=== PATIENT | female | born 1935 | race Caucasian/White ===

== ENCOUNTER 2016-11-18 19:07 | Inpatient (IN) | payer OTHER ==
[~2016-11-18] VITALS: Ht 165.1 cm; Wt 49.9 kg
--- NOTE | ~2016-11-18 | DS ---
[place], [place] DISCHARGE SUMMARY [id number] UNIT #: [id number] ROOM: 315 DOCTOR: JASPER ABBOTT BIRTHDATE: [birth year] DOS: 11/28/2016 HISTORY OF PRESENT ILLNESS: This is an 81-year-old female known to us from [facility] in [place], [place]. She has also had multiple psychiatric admissions to this unit. The patient was admitted due to altered mental status with increasing paranoia and psychosis, extremely fearful and tearful, increasingly more despondent and depressed and has not been attending to her ADLs or leaving her room. Her sleep and appetite have worsened and she has lost a significant amount of weight. She is somatically preoccupied, reporting extreme abdominal pain and multiple issues with headaches and fullness in her sinus area. She was admitted to rule out organic factors and to stabilize on her medications. PAST MEDICAL HISTORY: Remarkable for Parkinson disease, diabetes, GERD, glaucoma, hyperlipidemia, hypertension and sleep apnea. DIAGNOSIS: Major depression, recurrent with psychotic features. We maintained her on her psychotropic regimen and we then worked with pharmacy regarding obtaining Nuplazid given the fact that she continues to have issues with psychosis with the standard atypical antipsychotics and we did not want to exacerbate her Parkinson disease with them. The Nuplazid helped target specifically the hallucinations and delusions that you get with Parkinson disease. She was eventually able to get Nuplazid started and responded well to it and we started titrate her off of her other antipsychotropics. MENTAL STATUS: The patient is alert and oriented to person, place, approximate time. Mood euthymic. Affect appropriate. There is the occasional fixation and anxious overtones, but she redirects really well now. No overt signs of auditory or visual hallucinations, delusions, paranoia, lane, or hypomania. She still can be very somatically preoccupied, especially with her abdominal issues, which we believe is still related somewhat to the aggression of her Parkinson disease. PLAN: The patient is being discharged back to [facility] in [place], [place] in stable condition. She will be on Nuplazid 17 mg tabs 2 tabs daily. This will help with some of the psychosis associated with her Parkinson disease. She is currently still on Seroquel 12.5 mg b.i.d., I decreased this yesterday. Dr. Ramirez is following up with her next week at the facility and we will continue to wean the Seroquel to off. Since the Nuplazid which is started several days ago, we need time for it to titrate up in her system and pull away on the Seroquel. We anticipate that transferred back to the facility may cause a little bit of restlessness, so we want to keep the Seroquel on board for now, get her acclimated back to the facility and then wean this to off. She is also on Atarax 50 mg t.i.d. for anxiety, Exelon patch 13.3 mg q. day for dementia, Namenda XR 28 mg q. day for dementia and Remeron 15 mg at bedtime. This dose of 15 mg will help her sleep at night and stimulate her appetite and also help with depression. The patient is being discharged in stable condition and again Dr. Ramirez and myself will follow up with her at the facility. [place], [place] DISCHARGE SUMMARY NAME: TEZ CACERES UNIT #: [id number] ROOM: [facility] DOCTOR: JASPER ABBTOT BIRTHDATE: [birth year] ZACH ABBOTT CNP CM:DISCHDALE [id number] JASPER ABBOTT 11/28/16 0914 interface
--- NOTE | ~2016-11-18 | PR ---
[place], [place] PROGRESS NOTE NAME: TEZ CACERES UNIT #: [id number] ROOM: 315 DOCTOR: JASPER ABBOTT BIRTHDATE: [birth year] DOS: 11/27/2016 CHIEF COMPLAINT: "Good morning." SUMMARY OF VISIT: The patient assessed in the dining area. She still has her somatic symptoms, but it seems to be improving. It should be noted from nursing that she did receive her first dose of the Nuplazid yesterday. MENTAL STATUS: Alert and oriented to person, place, I do not think time. Mood, it is trending towards euthymic. She is less fixated and anxious. No overt signs of auditory or visual hallucinations, delusions, paranoia, still has the somatization, but is redirectable. PLAN: I am going to leave the psychotropics where they are right now since she just got her dose of Nuplazid. I will see how she is tomorrow and then per Dr. Ramirez's note of yesterday, we will look at discontinuing the Seroquel if we can. I want to give her a little bit more time with the Nuplazid building up in her system and then go from there. ZACH ABBOTT CNP CM:PNSTACY [id number] JASPER ABBOTT 11/27/16 1114 interface
--- NOTE | ~2016-11-18 | PR ---
[place], [place] PROGRESS NOTE [id number] UNIT #: [id number] ROOM: 315 DOCTOR: JASPER ABBOTT BIRTHDATE: [birth year] DOS: 11/21/2016 CHIEF COMPLAINT: "Good morning, I feel very dizzy. I can't feed myself." SUMMARY OF VISIT: The patient was assessed in the dining room where she was trying to eat breakfast. She was starting to cut up her egg, was complaining of some dizzy and nausea, feeling they are not wanting to feed herself, apparently is a behavior that she has had since she is here, but we are encouraging her to feed herself and she is capable of doing so; however, the dizziness may have some foundations. Apparently, she has had several bouts of diarrhea this morning and yesterday. We did check her vital signs, her blood pressure was fine, but she may be a little bit on the dehydrated side, so we will encourage some fluids with regards to that. MENTAL STATUS: She is alert and oriented to person, place, approximate time. Mood still on the depressed side. Affect is flat and blunted. No overt signs of auditory or visual hallucinations, delusions, or paranoia. She did sleep last night. PLAN: We are still trying to get her Nuplazid for her psychosis associated with her Parkinson's disease. I am not going to change any medications right now until we are sure the diarrhea is under control. I do not want to complicate anything. We will monitor her, we will continue with some fluids and see if we can get the Nuplazid ordered for her. ZACH ABBOTT CNP CM:PNTRANS [phone] JASPER ABBOTT 11/21/16 1025 interface
--- NOTE | ~2016-11-18 | PR ---
[place], [place] PROGRESS NOTE [id number] UNIT #: [id number] ROOM: 315 DOCTOR: JASPER ABBOTT BIRTHDATE: [birth year] DOS: 11/20/2016 CHIEF COMPLAINT: "Good morning." SUMMARY OF VISIT: The patient assessed in her room. She engaged readily in conversation, answered my questions appropriately, no voiced complaints. MENTAL STATUS: Alert and oriented to person, place, approximate time. Mood still rather depressed. Affect flat, blunted, and constricted range, stated sleep was a little bit better last night. PLAN: We are still trying to get Nuplazid for her psychosis associated with her Parkinson's disease. We will continue with current medications and engage in individual and rice milieu therapy with the plan to discharge once stable. ZACH ABBOTT CNP CM:PNTRANS [id number] JASPER ABBOTT 11/20/16 1417 interface
--- NOTE | ~2016-11-18 | PR ---
[place], [place] PROGRESS NOTE NAME: TEZ CACERES UNIT #: [id number] ROOM: 315 DOCTOR: ROXANNE AVILES MD BIRTHDATE: [birth year] DOS: 11/22/2016 CHIEF COMPLAINT: "I really don't feel good, my belly as bothering me, there is lots of pressure here." SUMMARY OF THE VISIT: The patient was interviewed as she sat waiting for breakfast. She engaged readily in conversation. She was mainly fixated on her belly pain, stating that she has a lot of abdominal distention and gas and a lot of pain. She is very worried about this because her mother from a bowel obstruction. She remains rather flat and blunted as well and very depressed, stating that she did not sleep well, nor has she been eating well. MENTAL STATUS: She is alert and oriented to person, place, but not time. Mood seems to be depressed. She is very somatically preoccupied. How much of this is reality based versus part of the depression is unclear, but needs to be evaluated further. There is no lane or hypomania. There are no overt auditory or visual hallucinations. Memory has gaps. PLAN: I will add simethicone 20 mg every 6 hours to see if this helps with some of her abdominal distention and gas. I will obtain a flat plate of the abdomen just to make certain that we are not dealing with any type of bowel obstruction or partial bowel obstruction. We will continue to engage her in individual and rice milieu activity with the plan then to return back to [facility] when psychiatrically stable. ROXANNE AVILES MD CM:PNTRANS [phone] ROXANNE AVILES MD 11/22/16 1704 interface
--- NOTE | ~2016-11-18 | PR ---
[place], [place] PROGRESS NOTE NAME: TEZ CACERES UNIT #: [id number] ROOM: 315 DOCTOR: JASPER ABBOTT BIRTHDATE: [birth year] DOS: 11/24/2016 CHIEF COMPLAINT: "Good morning." SUMMARY OF VISIT: The patient was assessed in the dining room. She engaged readily in conversation. She was started on antibiotic yesterday. Pending the sensitivity coming back due to the initial showed greater than 100,000 colonies and I believe she is symptomatic, I think some of this abdomen pain and discomfort may be related to UTI. She is fixated on her abdomen and pain and unfortunately not redirectable. Her imaging done on the , it shows bowel gas patterns normal without obstructions, multiple gas filled loops in the large and small. She is getting simethicone every 6 hours to help with this. Her main complaint is still pain and she is upset that we are not addressing her pain. She is constantly asking for pain medications in middle of night and then falling back to sleep. She has Tylenol available, but she states it is ineffective. I think what I am going to do at this time, I will add a low dose Cymbalta to see if it helps with her depression, but also possibly help with her chronic pain that she is complaining of we are waiting for the cultures and sensitivities come back, so we can get on the right antibiotic as well, see if this addition helps and do our best to redirect and inform her what is going on. ZACH ABBOTT CNP CM:PNTRANS [phone] JASPER ABBOTT 11/24/161709 interface
--- NOTE | ~2016-11-18 | PR ---
[place], [place] PROGRESS NOTE NAME: TEZ CACERES UNIT #: [id number] ROOM: 315 DOCTOR: JASPER ABBOTT ZACH BIRTHDATE: [birth year] DOS: 11/23/2016 CHIEF COMPLAINT: "Good morning." SUMMARY OF VISIT: The patient was assessed in the dining room where she was getting ready for breakfast. She was a little bit cold, we put a blanket around her. It should be noted that her lab came back. Her urinalysis was turbid, trace of protein, 2+ blood, positive for nitrites, 3+ leukocytes, 4+ bacteria. The patient has been complaining of belly pain. When I asked her to point to it, she actually pointed lower. I am wondering if she is having bladder spasms on top of this. She is not febrile and the doctor's hospitalist noted that she is not complaining of dysuria, but I am not sure that she would be able to correspond that symptom. She was originally admitted because she just did not feel well, very tearful, acutely change in her mental status even though she has dementia. I am kind of wondering if it was just a UTI brewing in this patient. Dr. Ramirez did order a flat plate yesterday to rule out anything. ____ had a little bit of gas bubbles, but no blockage and again when I assessed her and had her show me where it hurt, she started to rub her belly, but then she started pointing more down to the ____ area, which would be consistent with possible bladder spasms secondary to urinary tract infection. MENTAL STATUS: She is alert and oriented to person, place, I do not think time. Mood, still on the depressed side. She is preoccupied with this abdominal issue. We will follow up with the hospitalist to see if they are just waiting on the cultures and sensitivities come back or if they feel that it may be appropriate to just go ahead and start treat her now. PLAN: I am going to keep her psychotropic medications where they are right now. Let see if possibly starting an antibiotic would help clear up some of the issues that she is having. We will go from there. ZACH ABBOTT CNP CM:PNTRANS [phone] JASPER ABBOTT 11/23/161611 interface
--- NOTE | ~2016-11-18 | WRIGHTHP ---
[place], [place] PATIENT HISTORY AND PHYSICAL EXAM NAME[id number] UNIT #: [id number] ROOM: 315 DOCTOR: ROXANNE AVILES MD BIRTHDATE: [birth year] DOS: 11/19/2016 INITIAL PSYCHIATRIC EVALUATION CHIEF COMPLAINT: "I have all this pain and I just don't feel well." HISTORY OF PRESENT ILLNESS: This is an 81-year-old white female well known to me from her stay at [facility] in [place] as well as multiple psychiatric admissions here. The patient is admitted now due to altered mental status with increasing paranoia and psychosis. She is extremely fearful and tearful. She has been increasingly more despondent and depressed and has not been attending to her ADLs or leaving her room. Her sleep and appetite likewise have worsened and she has not been eating and has lost a significant amount of weight. She is somatically preoccupied, reporting that she has extreme abdominal pain and that she also has multiple issues with headaches and fullness in her sinus area. She is admitted now to rule out organicity and to stabilize on medication with the ultimate plan to return back to [facility] when stable. PAST MEDICAL HISTORY: Remarkable for long history of Parkinson's disease as well as diabetes, GERD, glaucoma, hyperlipidemia, hypertension, and sleep apnea. MENTAL STATUS: The patient is alert and oriented to person, place, and approximate to time. Mood does seem to be rather depressed. Affect is flat, blunted with constricted range. She is extremely somatically preoccupied and offers a plethora of somatic complaints as well as some paranoia. She is fearful and tearful. She does process slowly at times and she does have some issues with short-term memory. PLAN: I have maintained her on her current psychotropic regimen. I have discussed with pharmacy the possibility of obtaining Nuplazid given the fact that she continues to have issues with psychosis with the standard atypical antipsychotics and I do not want to exacerbate her Parkinson's with them. I would like to be able to place her on Nuplazid to see if we can target specifically the hallucinations and delusions of Parkinson's disease. We will engage her in individual and rice milieu activity with the ultimate plan then to return to [facility]. [place], [place] PATIENT HISTORY AND PHYSICAL EXAM NAME: TEZ CACERES UNIT #: [id number] ROOM: 315 DOCTOR: ROXANNE AVILES MD BIRTHDATE: [birth year] ROXANNE AVILES MD CM:HISPHYS:PATIENT HISTORY AND PHYSICAL EXAMINATION [id number] ROXANNE AVILES MD 11/19/16 1035 interface
--- NOTE | ~2016-11-18 | PR ---
[place], [place] PROGRESS NOTE NAME: TEZ CACERES UNIT #: [id number] ROOM: 315 DOCTOR: ROXANNE AVILES MD BIRTHDATE: [birth year] DOS: 11/26/2016 CHIEF COMPLAINT: "I think I feel better." SUMMARY OF THE VISIT: The patient was interviewed in the dining area. She smiled on approach and did state that she did feel a little better with the medication changes that I made yesterday. She reports feeling less anxious and feels less bloating and other somatic symptoms. She actually was able to engage in pleasant conversation and was very positive overall and how she was feeling. This is in lafleur contrast even yesterday when she offered a plethora of somatic complaints and was very negativistic. She did report better sleep as well and denied any medication side effects. MENTAL STATUS: She is alert and oriented with time gaps. Mood does seem to be more euthymic and she is less anxious and fretful. There are no overt auditory or visual hallucinations. No delusions. There is still some somatization but she redirects, short term memory has gaps, otherwise she is intact. PLAN: I will maintain her current psychotropic regimen given the fact that there seems to be some benefit ready, still awaiting word whether or not we can start the new Placid if we do so we may look then to discontinue the Seroquel. We will monitor and support engage in individual and rice milieu activity. ROXANNE AVILES MD CM:PNTRANS [phone] ROXANNE AVILES MD 11/26/16 1450 interface
--- NOTE | ~2016-11-18 | PR ---
[place], [place] PROGRESS NOTE NAME: TEZ CACERES UNIT #: [id number] ROOM: 315 DOCTOR: ROXANNE AVILES MD BIRTHDATE: [birth year] DOS: 11/25/2016 CHIEF COMPLAINT: "I am still dizzy, I am having bowel problems, no one is doing anything for me." SUMMARY OF THE VISIT: The patient was interviewed in the dining area. Upon approach, she appeared very fretful and anxious and distraught. She offered a plethora of somatic complaints and even after I had addressed each of those and began leaving to talk to another patient, she re-engaged me in conversation, reiterating the exact same point that she had already previously stated. She seems very anxious and very in need of support. She also reports that through the day, her anxiety level peaks at times, but she does not know why. MENTAL STATUS: She is alert and oriented with significant gaps. Mood does seem to be depressed with anxious overtones. There is no hypomania or lane. There are no overt auditory or visual hallucinations, although her somatization borders on psychosis. Memory is poor. PLAN: We are still waiting for the Nuplazid. At this point, I cannot justify continuing not treating her psychotic symptoms. So, I will go ahead and add Seroquel 12.5 mg 3 times a day. I will break it up in this fashion to give her some extra antianxiety properties as well. Once we get the Nuplazid, I will go ahead and discontinue the Seroquel if it is ineffective. I will discontinue Cymbalta to prevent polypharmacy at this point. Maintain the Remeron at 15 mg at bedtime. Continue to engage her in individual and rice milieu activity with the plan then to return to [facility] in [place] when psychiatrically stable. ROXANNE AVILES MD CM:PNTRANS [phone] ROXANNE AVILES MD 11/25/16 1021 interface
[~2016-11-18 19:07] MED LIST: ARTIFICIAL TEA1 EACH OU; B121000 MCG/1 IM; BISACODYL10 MG RC; BRIN20TA PO; CARBIDOPA/LEVOD1 TA1 PO; EXELON13.3 MG/21 T; FLUDROCORTISON0.1 MG PO; FLUTICASON0.05 MG/AC NAS; GLYCOLAX17 GM/DOSE PO; HYDROCODON-ACE1 EACH PO; LATANOPROST2.5 ML OU; LINZESS290 MC1 PO; MECLIZINE HCL25 M2 PO; METFORMIN HCL500 MG PO; METOPROLOL TART50 M1 PO; MIDODRINE HCL5 M1 PO; MIRTAZAPINE15 M2 PO; NAMENDA XR7 M1 PO; NAMENDA-28 PO; OMEPRAZOLE D/R20 MG PO; POTASSIUM CHLO20 ME4 PO; QUETIAPINE FUMA25 MG PO; RIVASTIGMINE1 EACH T; SEROQUEL25 MG PO; SEROQUEL50 MG PO; SIMVASTATIN40 MG PO; VITAMIN D22000 UNIT PO
[2016-11-18] MEDS ORDERED: REMERON15 M2 PO (23:18)
[2016-11-19 00:23] VITALS: BP 118/84
[2016-11-19 01:02] VITALS: BP 118/84
[2016-11-19] MEDS ORDERED: VISTARIL50 MG PO (04:08)
[2016-11-19] MEDS ORDERED: ARTIFICIAL TEAR15 M9 OU (04:13)
[2016-11-19] MEDS ORDERED: QUALITY CHOICE10 M3 PO (04:17)
[2016-11-19] MEDS ORDERED: MOTION SICKNESS25 M2 PO (04:18)
[2016-11-19] MEDS ORDERED: ZOFRAN4 MG PO (04:19)
[2016-11-19 07:11] LABS: BASO % 0.6 % (0.0-1.0); EOS # 0.3 10*3/uL (0.0-0.4); EOS % 4.3 % (1.0-4.0); HEMOGLOBIN 10.6 g/dl (12.0-16.0); LYMPH # 1.9 10*3/uL (1.3-4.4); LYMPH % 29.1 % (27.0-41.0); MEAN CELL VOLUME 93.8 fl (81.0-99.0); MEAN CORPUSCULAR HGB 30.1 pg (27.0-31.0); MEAN CORPUSCULAR HGB CONC 32.1 g/dl (33.0-37.0); MEAN PLATELET VOLUME 10.5 fl (9.6-12.3); MONO # 0.5 10*3/uL (0.1-1.0); MONO % 7.1 % (3.0-9.0); NEUT # 3.7 10*3/uL (2.3-7.9); NEUT % 58.6 % (47.0-73.0); PLATELET COUNT AUTOMATED 215 10*3/uL (130-400); RED BLOOD COUNT 3.52 10*6/uL (4.10-5.10); WHITE BLOOD COUNT 6.4 10*3/uL (4.8-10.8)
[2016-11-19 07:43] LABS: ALBUMIN 2.9 gm/dl (3.1-4.5); BILIRUBIN, TOTAL 0.4 mg/dl (0.2-1.0); BUN 21 mg/dl (7-24); CARBON DIOXIDE 30 mmol/L (21-32); CHLORIDE 102 mmol/L (98-107); CHOLESTEROL 113 mg/dL (<200); EST GLOM FILT AFRICAN AMERICAN > 60 ml/min; GLUCOSE 86 mg/dL (65-99); POTASSIUM 4.1 mmol/L (3.5-5.1); SGOT/AST 12 IU/L (3-35); SGPT/ALT 21 U/L (12-78); SODIUM 141 mmol/L (136-145); TOTAL PROTEIN 6.1 gm/dL (6.4-8.2); TRIGLYCERIDES 113 mg/dl (<150); VLDL CHOLESTEROL 23 mg/dL (6-40)
[2016-11-19 07:52] LABS: ALKALINE PHOSPHATASE 70 U/L (45-117); HDL CHOLESTEROL 72 mg/dl (40-60); LDL CHOLESTEROL 18 mg/dL (9-159)
[2016-11-19 07:53] LABS: HEMOGLOBIN A1c 5.7 % (4.8-5.6)
[2016-11-19 08:00] VITALS: BP 156/70
[2016-11-19 08:21] LABS: FOLIC ACID 13.96 ng/mL (>5.38); VITAMIN D, 25-HYDROXY 53.1 ng/mL (30-100)
[2016-11-19 20:16] VITALS: BP 160/82
[2016-11-20 07:53] VITALS: BP 150/62
[2016-11-20 20:10] VITALS: BP 138/58
[2016-11-21 08:00] VITALS: BP 110/77
[2016-11-21 20:15] VITALS: BP 156/62
[2016-11-22 08:16] VITALS: BP 130/90
[2016-11-22 19:53] VITALS: BP 156/70
[2016-11-22 21:24] LABS: BILIRUBIN NEGATIVE (NEGATIVE); BLOOD 2+ (NEGATIVE); CLARITY TURBID (CLEAR); COLOR YELLOW (YELLOW); GLUCOSE NEGATIVE (NEGATIVE); KETONE TRACE (NEGATIVE); LEUKO ESTERASE 3+ (NEGATIVE); NITRITE POSITIVE (NEGATIVE); PROTEIN 1+ (NEGATIVE); UROBILINOGEN 0.2 E.U./dl (0.2-1.0)
[2016-11-22 21:32] LABS: BACTERIA 4+; MUCOUS TRACE; RBC 16-20 rbc/hpf (0-2); URINE REFLEX COMMENT YES (NO); WBC TNTC wbc/hpf (0-5)
[2016-11-23 08:01] VITALS: BP 154/74
[2016-11-23 19:47] VITALS: BP 140/81
[2016-11-24 07:47] VITALS: BP 156/72
[2016-11-24 19:53] VITALS: BP 140/62
[2016-11-25 07:23] VITALS: BP 136/63
[2016-11-25 19:46] VITALS: BP 142/65
[2016-11-26 07:03] VITALS: BP 140/66
[2016-11-26 20:00] VITALS: BP 112/52
[2016-11-27 09:21] VITALS: BP 154/68
[2016-11-27 19:44] VITALS: BP 133/61
[2016-11-28 06:46] LABS: BILIRUBIN NEGATIVE (NEGATIVE); BLOOD TRACE-INTACT (NEGATIVE); CLARITY SL CLOUDY (CLEAR); COLOR YELLOW (YELLOW); GLUCOSE NEGATIVE (NEGATIVE); KETONE NEGATIVE (NEGATIVE); LEUKO ESTERASE TRACE (NEGATIVE); NITRITE NEGATIVE (NEGATIVE); PROTEIN NEGATIVE (NEGATIVE); UROBILINOGEN 0.2 E.U./dl (0.2-1.0)
[2016-11-28 06:57] LABS: BACTERIA TRACE; CALCIUM OXALATE CRYSTALS 2+; URINE REFLEX COMMENT YES (NO)
[2016-11-28 07:48] VITALS: BP 180/80
[2016-11-28] MEDS ORDERED: NUPLAZID17 MG PO (08:18)
[2016-11-28] MEDS ORDERED: QUETIAPINE FUMA25 MG PO (08:18)
[2016-11-28] MEDS ORDERED: CARBIDOPA/LEVOD1 TA1 PO (11:33)
== END 2016-11-28 13:43 | DRG 885 ==
LOC: 3N 19:07
PROVIDERS: Psychiatry & Neurology Psychiatry
DX: F33.3 Major depressive disorder, recurrent, severe with psychotic symptoms (principal); E11.65 Type 2 diabetes mellitus with hyperglycemia; G20 Parkinson's disease; F23 Brief psychotic disorder; R30.0 Dysuria; I10 Essential (primary) hypertension; K21.9 Gastro-esophageal reflux disease without esophagitis; R10.9 Unspecified abdominal pain; E78.00 Pure hypercholesterolemia, unspecified; H40.9 Unspecified glaucoma; E78.5 Hyperlipidemia, unspecified; Z90.710 Acquired absence of both cervix and uterus; Z90.49 Acquired absence of other specified parts of digestive tract; Z80.3 Family history of malignant neoplasm of breast; Z82.5 Family history of asthma and other chronic lower respiratory diseases; Z88.0 Allergy status to penicillin; Z88.2 Allergy status to sulfonamides; Z88.6 Allergy status to analgesic agent; Z91.041 Radiographic dye allergy status; Z79.899 Other long term (current) drug therapy